=== PATIENT | male | born 1950 | race African-American/Black ===

== ENCOUNTER 2021-09-08 13:27 | Inpatient (IN) | payer OTHER ==
[~2021-09-08] VITALS: Ht 180.3 cm; Wt 77.1 kg
[2021-09-08 14:56] LABS: Basophils # (auto) 0 10 ^3/uL (0-0.2); Eosinophils # (auto) 0 10 ^3/uL (0-0.8); Hemoglobin 11.5 g/dL (13.5-17.5); Lymphocytes # (auto) 0.3 10 ^3/uL (0.4-5.4)
[2021-09-08 14:59] LABS: Basophils % (auto) 0.4 % (0.0-2.0); Hematocrit 36.3 % (41.0-53.0); Lymphocytes % (auto) 3.6 % (10.0-50.0); Mean Corpuscular Hemoglobin 22.4 pg (28.0-32.0); Mean Corpuscular Hgb Conc. 31.6 g/dL (32.0-36.0); Mean Corpuscular Volume 70.8 fL (80.0-100.0); Monocytes % (auto) 10.4 % (0.0-12.0); Neutrophils # (auto) 8.3 10 ^3/uL (1.6-8.6); Neutrophils % (auto) 85.6 % (37.0-80.0); Red Blood Cells 5.12 10^6/uL (4.5-5.90); White Blood Cell 9.7 10^3/uL (4.4-10.8)
[2021-09-08 15:10] LABS: Red Cell Distribution Width 21.8 % (11.8-14.3)
[2021-09-08 15:15] LABS: Albumin 2.9 g/dL (3.4-5.0); Anion Gap 13 (5-15); Blood Urea Nitrogen 17 mg/dL (7-18); Calcium 8.4 mg/dL (8.5-10.1); Carbon Dioxide 19 mmol/L (21-32); Chloride 105 mmol/L (98-107); Glucose 253 mg/dL (74-106); Potassium 4.5 mmol/L (3.5-5.1); Sodium 137 mmol/L (136-145)
[2021-09-08 15:17] LABS: Alanine Aminotransferase 26 U/L (16-61); Aspartate Aminotransferase 29 U/L (15-37); BUN/Creatinine Ratio 19.8; GFR African American 113 mL/min; GFR Non-African American 94 mL/min
[2021-09-08 15:20] LABS: Alkaline Phosphatase 88 U/L (45-117); Bilirubin, Total 0.7 mg/dL (0.2-1.0); Total Protein 7.1 g/dL (6.4-8.2)
[2021-09-08] MEDS ORDERED: FUROSEMIDE 40 MG/4 ML VIAL IV ONE (16:45)
[2021-09-08] MEDS ORDERED: dilTIAZem 25 MG/5 ML VIAL IV ONE (17:00)
[2021-09-08] MEDS ORDERED: ACETAMINOPHEN IV 1000 MG/100ML (10MG/ML) IV PRN ×2 (18:30→18:45)
[2021-09-08 19:36] LABS: Lactic Acid w/Reflex 4.3 mmol/L (0.4-2.0)
[2021-09-08] MEDS ORDERED: MORPHINE SULFATE INJ 2 MG/ml SYRG IV PRN (21:15)
[2021-09-08] MEDS ORDERED: DEXTROSE (50%) 50ML SYRG IV PRN (21:40)
[2021-09-08] MEDS ORDERED: cefTRIAXone 1GM/50ML D5W 50 ML IV ONE (21:40)
[2021-09-08] MEDS ORDERED: ONDANSETRON HCL 4 MG/2 ML VIAL IV PRN (21:40)
[2021-09-08] MEDS ORDERED: ALBUMIN 5% 50 ML IV ONE (21:40)
[2021-09-08] MEDS ORDERED: NITROGLYCERIN 0.4 MG SL TAB SL PRN (21:40)
[2021-09-08] MEDS ORDERED: ACETAMINOPHEN 325 MG TAB PO PRN (21:40)
[2021-09-08] MEDS: DABIGATRAN 75 MG CAP PO SCH (22:00)
[2021-09-08] MEDS ORDERED: ATORVASTATIN 20 MG TAB PO SCH (22:00)
[2021-09-08] MEDS: CARVEDILOL 3.125 MG TAB PO SCH (22:00)
[2021-09-08] MEDS: ACCU-CHEK COMFORT CURVE STRIP VI SCH (22:10)
[2021-09-08] MEDS: InsuLIN REG 1unit/0.01ml Soln (100units/ml) SC SCH (22:16)
[2021-09-08 22:33] LABS: INR 1.46 (0.9-1.15); Partial Thromboplastin Time 30.7 sec (23.6-33.0)
[2021-09-09] MEDS ORDERED: PHENYLEPHRINE IV 250 ML IV ONE (02:03)
[2021-09-09] MEDS: PHENYLEPHRINE IV 250 ML IV SCH ×2 (02:03→03:55)
[2021-09-09] MEDS ORDERED: IOHEXOL 350 MG/ML 100ML IJ ONE (02:11)
[2021-09-09 03:28] LABS: Urine Bacteria MANY /hpf (None Seen); Urine Blood Negative /uL (Negative); Urine Hyaline Cast FEW /lpf (0 - 2); Urine Mucus FEW (None Seen); Urine Specific Gravity 1.011 (1.001-1.035); Urine WBC 1 /hpf (0 - 3)
[2021-09-09] MEDS: FUROSEMIDE 20 MG/2 ML VIAL IV SCH ×2 (06:02→18:07)
[2021-09-09] MEDS: InsuLIN REG 1unit/0.01ml Soln (100units/ml) SC SCH ×3 (06:59→17:00)
[2021-09-09] MEDS: ACCU-CHEK COMFORT CURVE STRIP VI SCH ×3 (06:59→17:04)
[2021-09-09 07:11] LABS: Basophils # (auto) 0 10 ^3/uL (0-0.2); Basophils % (auto) 0.1 % (0.0-2.0); Eosinophils # (auto) 0 10 ^3/uL (0-0.8); Hematocrit 35.8 % (41.0-53.0); Hemoglobin 11.3 g/dL (13.5-17.5); Lymphocytes # (auto) 0.7 10 ^3/uL (0.4-5.4); Lymphocytes % (auto) 3.5 % (10.0-50.0); Mean Corpuscular Hemoglobin 22.4 pg (28.0-32.0); Mean Corpuscular Hgb Conc. 31.6 g/dL (32.0-36.0); Monocytes # (auto) 1.1 10 ^3/uL (0-1.3); Monocytes % (auto) 5.3 % (0.0-12.0); Neutrophils # (auto) 19.6 10 ^3/uL (1.6-8.6); Neutrophils % (auto) 91.1 % (37.0-80.0); Nucleated Red Blood Cells % 0.1 %; Red Blood Cells 5.04 10^6/uL (4.5-5.90); White Blood Cell 21.5 10^3/uL (4.4-10.8)
[2021-09-09 07:13] LABS: Red Cell Distribution Width 22.4 % (11.8-14.3)
[2021-09-09 07:35] LABS: Albumin 2.6 g/dL (3.4-5.0); Calcium 8.2 mg/dL (8.5-10.1); Potassium 4.4 mmol/L (3.5-5.1)
[2021-09-09 07:39] LABS: BUN/Creatinine Ratio 17.8; Bilirubin, Total 0.8 mg/dL (0.2-1.0); Total Protein 6.6 g/dL (6.4-8.2)
[2021-09-09] MEDS ORDERED: cefTRIAXone 1GM/50ML D5W 50 ML IV SCH (09:00)
[2021-09-09] MEDS: DABIGATRAN 75 MG CAP PO SCH (09:17)
[2021-09-09] MEDS: CARVEDILOL 3.125 MG TAB PO SCH (09:17)
[2021-09-09] MEDS ORDERED: VANCOMYCIN PER PHARMACY 0 MG IV SCH (10:00)
[2021-09-09] MEDS ORDERED: amLODIPine BESYLATE 5 MG TAB PO SCH (10:00)
[2021-09-09] MEDS ORDERED: PANTOPRAZOLE 40 MG TAB PO SCH (10:00)
[2021-09-09] MEDS ORDERED: VANCOMYCIN 1GM/250ML 250 ML IV ONE (10:45)
[2021-09-09 15:39] LABS: Alcohol, Urine < 3.0 mg/dL (0-10); Amphetamine Screen, Urine NEGATIVE (NEGATIVE); Barbiturate Scree,Urine NEGATIVE (NEGATIVE); Benzodiazephine Screen, Urine NEGATIVE (NEGATIVE); Cocaine Screen, Urine NEGATIVE (NEGATIVE); Opiate Scree,Urine NEGATIVE (NEGATIVE); Phencyclidine Screen, Urine NEGATIVE (NEGATIVE)
[2021-09-09 15:47] LABS: Cannabinoid Screen, Urine POSITIVE (NEGATIVE)
[2021-09-09 18:35] LABS: Hepatitis B Surface Antibody Positive (Negative)
[2021-09-09 18:52] LABS: Hepatitis A Total Antibody Positive (Negative)
[2021-09-09 19:50] VITALS: BP 110/80
[2021-09-09 19:58] LABS: Hepatitis C Antibody Positive (Negative)
[2021-09-09] MEDS ORDERED: VANCOMYCIN 750mg/250ml 250 ML IV SCH (22:00)
== END 2021-09-09 19:57 | disposition short-term general hospital (02) | DRG 871 ==
LOC: ER 13:27 → EDBD 13:27 → TELE 21:11
PROVIDERS: ADMIT Nurse Practitioner; ATTEND Internal Medicine
DX: A41.9 Sepsis, unspecified organism (principal); E43 Unspecified severe protein-calorie malnutrition; I50.43 Acute on chronic combined systolic (congestive) and diastolic (congestive) heart failure; L97.919 Non-pressure chronic ulcer of unspecified part of right lower leg with unspecified severity; J91.8 Pleural effusion in other conditions classified elsewhere; I42.0 Dilated cardiomyopathy; I11.0 Hypertensive heart disease with heart failure; Z20.822 Contact with and (suspected) exposure to COVID-19; E11.9 Type 2 diabetes mellitus without complications; I48.0 Paroxysmal atrial fibrillation; K74.60 Unspecified cirrhosis of liver; Z88.5 Allergy status to narcotic agent; Z68.23 Body mass index [BMI] 23.0-23.9, adult
CPT/HCPCS: 36415; 71045; 71275; 80053; 80307; 81001; 82962; 83605; 83735; 83880; 84443; 84484; 85025; 85379; 85610; 85730; 86704; 86706; 86708; 86803; 87040; 87077; 87186; 87340; 93005; 93306; 96365; 96366; 96367; 96375; 99291; G0378; J0131; J0696; J1815